=== PATIENT | female | born 1930 | race Caucasian/White ===

== ENCOUNTER → 2020-10-20 | Outpatient (CLI) | payer MEDICARE ==
[~2020-10-20] MED LIST: ADVAIR 250-501 EACH INH; ALLEGRA ALLERG180 MG PO; ARTIFICIAL TEAR15 ML EYEBOTH; ASPIR 8181 MG PO; ASPIRIN EC81 MG PO; ATENOLOL25 MG PO; BENZONATATE200 MG PO; BREO ELLIPTA 11 EACH INH; CALCIUM 600+D1 EAC3 PO; CENTRUM SILVER1 EAC1 PO; CLARITIN10 MG PO; COZAAR100 MG PO; CYMBALTA 20 MG20 MG PO; ESOMEPRAZOLE MA40 MG PO; FOLIC ACID 1 MG1 MG PO; FOLIC ACID1 MG PO; GAS-X125 MG PO; HYDROCHLOROTH12.5 MG PO; LEVOTHYROXINE100 MCG PO; LIPITOR TAB 2020 MG PO; LISINOPRIL10 MG PO; LOPRESSOR 50 MG50 MG PO; METHOTREXATE T2.5 MG PO; METHOTREXATE2.5 MG PO; MICROZIDE12.5 MG PO; MULTI-VITAMIN1 EACH PO; NYSTATIN SWISH PO; OCEAN NASAL SPRAY; OMEPRAZOLE40 MG PO; OXYBUTYNIN CHLOR5 M1 PO; PEPCID AC20 MG PO; PLAQUENIL 200200 MG PO; PLAQUENIL200 MG PO; PREMARIN VAG CR30 GM TOP; PROAIR HFA8.5 GM INH; PROBIOTIC1 EAC1 PO; PROBIOTIC1 EAC2 PO; PROLOPRIM 100100 MG PO; ROBAXIN-750750 MG PO; ROPINIROLE HC0.25 MG PO; SALINE NASAL M126 ML; SINGULAIR10 MG PO; SYNTHROID100 MCG PO; TUSSIN100 MG/5 M PO; ULTRAM50 MG PO; WIXELA 250-501 EACH INH; XOLAIR 150150 MG/VIA INJ; [UNRECOGNIZED DRUG - OTHER]
== END ==
LOC: HEART 5 15:30
DX: I25.10 Atherosclerotic heart disease of native coronary artery without angina pectoris (principal); R06.02 Shortness of breath; I08.3 Combined rheumatic disorders of mitral, aortic and tricuspid valves; I27.20 Pulmonary hypertension, unspecified; R93.1 Abnormal findings on diagnostic imaging of heart and coronary circulation
CPT/HCPCS: 93306

== ENCOUNTER 2020-11-08 15:47 | Emergency (ER) | payer MEDICARE | END 2020-11-08 18:00 | disposition home or self-care (01) | LOC: ER1 15:47 | DX: S92.321A Displaced fracture of second metatarsal bone, right foot, initial encounter for closed fracture (principal); S92.331A Displaced fracture of third metatarsal bone, right foot, initial encounter for closed fracture; S92.341A Displaced fracture of fourth metatarsal bone, right foot, initial encounter for closed fracture; S83.91XA Sprain of unspecified site of right knee, initial encounter; I10 Essential (primary) hypertension; J45.909 Unspecified asthma, uncomplicated; Z79.01 Long term (current) use of anticoagulants; Z88.0 Allergy status to penicillin; Z88.1 Allergy status to other antibiotic agents; Z88.8 Allergy status to other drugs, medicaments and biological substances; W01.0XXA Fall on same level from slipping, tripping and stumbling without subsequent striking against object, initial encounter; Y92.009 Unspecified place in unspecified non-institutional (private) residence as the place of occurrence of the external cause | CPT/HCPCS: 29515; 73564; 73610; 73630; 99283 ==

== ENCOUNTER → 2020-12-09 | Outpatient (CLI) | payer MEDICARE | LOC: KOH-I 14:39 | DX: E87.1 Hypo-osmolality and hyponatremia (principal); K44.9 Diaphragmatic hernia without obstruction or gangrene | CPT/HCPCS: 71046 ==

== ENCOUNTER → 2021-02-05 | Outpatient (CLI) | payer MEDICARE | LOC: KOH-I 12:54 | DX: M79.671 Pain in right foot (principal); S92.331D Displaced fracture of third metatarsal bone, right foot, subsequent encounter for fracture with routine healing; S92.341D Displaced fracture of fourth metatarsal bone, right foot, subsequent encounter for fracture with routine healing; M85.871 Other specified disorders of bone density and structure, right ankle and foot; W19.XXXD Unspecified fall, subsequent encounter | CPT/HCPCS: 73700 ==

== ENCOUNTER → 2021-05-21 | Outpatient (CLI) | payer MEDICARE | LOC: KOH-I 12:46 | DX: R04.2 Hemoptysis (principal); R05.9 Cough, unspecified; D71 Functional disorders of polymorphonuclear neutrophils | CPT/HCPCS: 71046 ==